=== PATIENT | male | born 1990 | race Caucasian/White ===

== ENCOUNTER 2016-09-22 20:09 | Emergency (ER) | payer SELFPAY ==
[2016-09-23 01:04] VITALS: BP 157/88
== END 2016-09-23 01:04 | disposition home or self-care (01) ==
LOC: ED 20:09
DX: S52.591A Other fractures of lower end of right radius, initial encounter for closed fracture (principal); W22.01XA Walked into wall, initial encounter; Y93.89 Activity, other specified; Y99.8 Other external cause status; Y92.89 Other specified places as the place of occurrence of the external cause

== ENCOUNTER 2018-04-28 17:30 | Emergency (ER) | payer SELFPAY ==
[2018-04-28 20:05] VITALS: BP 157/83
== END 2018-04-28 20:05 | disposition home or self-care (01) ==
LOC: ED 17:30
DX: A54.09 Other gonococcal infection of lower genitourinary tract (principal); A60.01 Herpesviral infection of penis
CPT/HCPCS: J0696

== ENCOUNTER 2018-05-18 20:05 | Inpatient (IN) | payer MEDICAID ==
[~2018-05-18] VITALS: Ht 172.7 cm; Wt 121.8 kg
[2018-05-18 20:10] VITALS: Ht 172.7 cm; Wt 121.8 kg
[2018-05-18 21:08] LABS: microscopic required? YES; urine erythrocyte 1+ (NEGATIVE)
[2018-05-18 21:38] LABS: BASOPHIL % 0.4 % (0-2); PLATELET COUNT 207 x10^3mcL (130-400); RED CELL DISTRIBUTION WIDTH 13.8 % (11.5-14.5)
[2018-05-18 21:49] LABS: CALCIUM 8.5 mg/dL (8.5-10.1); CARBON DIOXIDE 26.1 mmol/L (21-32); CHLORIDE SERUM 103 mmol/L (98-107); CREATININE SERUM 0.8 mg/dL (0.7-1.3); GFR1 > 60 mL/min; GLUCOSE SERUM 223 mg/dL (74-106); POTASSIUM SERUM 3.8 mmol/L (3.5-5.1); SODIUM SERUM 138 mmol/L (136-145)
[2018-05-18 21:53] LABS: ALKALINE PHOSPHATASE 66 U/L (46-116); ALT/SGPT 102 U/L (16-63); AST/SGOT 43 U/L (15-37); BILIRUBIN TOTAL 0.34 mg/dL (0.20-1.00); LIPASE 95 IU/L (73-393); TOTAL PROTEIN, SERUM 7.5 g/dL (6.4-8.2)
[2018-05-18 21:54] LABS: ALBUMIN 3.2 g/dL (3.4-5.0)
[2018-05-19 01:03] VITALS: BP 152/92
[2018-05-19 01:23] LABS: MAGNESIUM 1.9 mg/dL (1.8-2.4); PHOSPHOROUS 3.4 mg/dL (2.5-4.9)
[2018-05-19 05:35] VITALS: BP 136/77
[2018-05-19 07:08] LABS: BASOPHIL % 0.4 % (0-2); PLATELET COUNT 200 x10^3mcL (130-400); RED CELL DISTRIBUTION WIDTH 13.9 % (11.5-14.5)
[2018-05-19 07:38] LABS: CALCIUM 8.8 mg/dL (8.5-10.1); CARBON DIOXIDE 26.2 mmol/L (21-32); CHLORIDE SERUM 106 mmol/L (98-107); CREATININE SERUM 0.8 mg/dL (0.7-1.3); GFR1 > 60 mL/min; GLUCOSE SERUM 100 mg/dL (74-106); MAGNESIUM 2.2 mg/dL (1.8-2.4); PHOSPHOROUS 4.1 mg/dL (2.5-4.9); POTASSIUM SERUM 4.5 mmol/L (3.5-5.1); SODIUM SERUM 140 mmol/L (136-145)
[2018-05-19 09:23] VITALS: BP 144/87
[2018-05-19 16:26] LABS: UA SPECIFIC GRAVITY 1.025 (1.005-1.035); microscopic required? YES; urine erythrocyte 3+ (NEGATIVE)
[2018-05-19 16:32] LABS: AMPHETAMINE QUAL UR NONE DETECTED (See below)
[2018-05-19 18:16] VITALS: BP 145/87
[2018-05-19 21:29] VITALS: BP 127/69
[2018-05-20 05:30] VITALS: BP 130/85
[2018-05-20 07:15] LABS: BASOPHIL % 0.4 % (0-2); PLATELET COUNT 208 x10^3mcL (130-400); RED CELL DISTRIBUTION WIDTH 13.7 % (11.5-14.5)
[2018-05-20 08:10] LABS: CALCIUM 8.9 mg/dL (8.5-10.1); CARBON DIOXIDE 27.1 mmol/L (21-32); CHLORIDE SERUM 105 mmol/L (98-107); CREATININE SERUM 0.7 mg/dL (0.7-1.3); GFR1 > 60 mL/min; GLUCOSE SERUM 107 mg/dL (74-106); POTASSIUM SERUM 4.1 mmol/L (3.5-5.1); SODIUM SERUM 140 mmol/L (136-145)
[2018-05-20 09:45] VITALS: BP 134/95
[2018-05-20 16:45] VITALS: BP 135/87
[2018-05-20 20:49] VITALS: BP 131/77
[2018-05-21 06:16] VITALS: BP 125/80
[2018-05-21 07:06] LABS: CALCIUM 8.9 mg/dL (8.5-10.1); CARBON DIOXIDE 28.9 mmol/L (21-32); CHLORIDE SERUM 104 mmol/L (98-107); CREATININE SERUM 0.9 mg/dL (0.7-1.3); GFR1 > 60 mL/min; GLUCOSE SERUM 104 mg/dL (74-106); MAGNESIUM 2.1 mg/dL (1.8-2.4); PHOSPHOROUS 4.8 mg/dL (2.5-4.9); POTASSIUM SERUM 4.3 mmol/L (3.5-5.1); SODIUM SERUM 139 mmol/L (136-145)
[2018-05-21 07:08] LABS: BASOPHIL % 0.3 % (0-2); PLATELET COUNT 224 x10^3mcL (130-400); RED CELL DISTRIBUTION WIDTH 14.1 % (11.5-14.5)
[2018-05-21 09:31] VITALS: BP 130/75
[2018-05-21 16:59] VITALS: BP 137/83
[2018-05-21 20:51] VITALS: BP 148/81
[2018-05-22 05:47] VITALS: BP 114/70
[2018-05-22 07:15] LABS: BASOPHIL % 0.5 % (0-2); PLATELET COUNT 217 x10^3mcL (130-400)
[2018-05-22 07:16] LABS: CALCIUM 8.7 mg/dL (8.5-10.1); CARBON DIOXIDE 25.5 mmol/L (21-32); CHLORIDE SERUM 106 mmol/L (98-107); CREATININE SERUM 0.9 mg/dL (0.7-1.3); GFR1 > 60 mL/min; GLUCOSE SERUM 101 mg/dL (74-106); MAGNESIUM 2.1 mg/dL (1.8-2.4); PHOSPHOROUS 4.2 mg/dL (2.5-4.9); POTASSIUM SERUM 4.1 mmol/L (3.5-5.1); SODIUM SERUM 140 mmol/L (136-145)
[2018-05-22 09:45] VITALS: BP 140/80
[2018-05-22 11:24] VITALS: BP 130/77; BP 140/80
[2018-05-22] MEDS ORDERED: MAC100 PO (11:32)
[2018-05-22] MEDS ORDERED: BD LACTINEX1.4 MG PO (11:38)
== END 2018-05-22 17:05 | disposition home or self-care (01) | DRG 244 ==
LOC: ED 20:05 → MU 05-19 00:15 → DU 05-19 00:15 → MU 05-19 04:53
PROVIDERS: Emergency Medicine; Internal Medicine; ADMIT General Practice
DX: K57.20 Diverticulitis of large intestine with perforation and abscess without bleeding (principal); N17.0 Acute kidney failure with tubular necrosis; E44.1 Mild protein-calorie malnutrition; N32.1 Vesicointestinal fistula; Z68.41 Body mass index [BMI] 40.0-44.9, adult; N39.0 Urinary tract infection, site not specified; R73.03 Prediabetes; R74.0 Nonspecific elevation of levels of transaminase and lactic acid dehydrogenase [LDH]; E66.9 Obesity, unspecified; Z71.3 Dietary counseling and surveillance
CPT/HCPCS: J1885; J1956; J2543; J3490; J7030; Q0092; Q9966; Q9967